=== PATIENT | male | born 1950 | race Caucasian/White ===

== ENCOUNTER → 2019-08-25 10:25 | Outpatient (CLI) | payer MEDICARE, OTHER | END | disposition home or self-care (01) | LOC: D.HCCECHO 10:25 | PROVIDERS: ATTEND Internal Medicine Cardiovascular Disease | DX: I10 Essential (primary) hypertension (principal); I20.9 Angina pectoris, unspecified ==

== ENCOUNTER 2019-09-13 07:11 | Outpatient (CLI) | payer MEDICARE, OTHER ==
[~2019-09-13] VITALS: Ht 180.3 cm; Wt 79.5 kg
--- NOTE | ~2019-09-13 | HEMODYNAMI ---
PATIENT:MARK SAENZ MEDICAL RECORD: [id number] : 50 LOCATION:[facility] ADMISSION DATE: 09/13/19 Generatedon:09/13/201910:08 Patient name: MARK SAENZ Patient #: [id number] SSN: : Date of study: 09/13/2019 Page: Of Hemodynamic Procedure Report Patient Data Patient Demographics Procedure consent was obtained First Name: MARK Gender: Male Last Name: LETTY : 1950 Patient #: [id number] Age: 68 year(s) Race: Unknown Additional ID: [id number] Contact details [address]: [address] [place] [address] State: [place] City: [place] Zip code: [address] Past Medical History Allergies: No known allergies Admission Admission Data Admission Date: 09/13/2019 Admission Time: 7:11 Arrival Date: 09/13/2019 Arrival Time: 0:00 Admit Source: Other Insurance Payor: Medicare [facility] #: [id number] Height (in.): 71 BSA: 1.99 (m2) Height (cm.): 180.34 BMI: 24.46 (kg/m2) Weight (lbs.): 175.36 Weight (kg.): 79.54 Lab Results Lab Result Date: 09/13/2019 Lab Result Time: 0:00 Biochemistry Name Units Result Min Max BUN mg/dl 26 --(----)-* 7 18 Creatinine mg/dl 0.9 --(-*--)-- 0.6 1.3 eGFR ml/min 88.26739 -*(----)-- 90 120 NONAFRICAN CBC Name Units Result Min Max Hematocrit % 42.7 --(*---)-- 42 54 Hemoglobin g/dl 42.7 --(----)-* 13.5 17.5 Procedure Procedure Types Cath Procedure Diagnostic Procedure [facility] w/Coronaries FFR/IVUS Intra-Coronary IVUS Initial Sedation Charges Moderate Sedation up to 30 minutes PCI Procedure Hemochron ACT Test Procedure Description Procedure Date Procedure Date: 09/13/2019 Procedure Start Time: 9:33 Procedure End Time: 10:08 Procedure Staff Name Function Dougals Fang MD Performing Physician Marta Florez RT Monitor Zonia Clemente RT Monitor Yoselin Sosa RN Nurse Ashly Walton RT Scrub Indication Chest pain Pulmonary hypertension Procedure Data Cath Procedure Fluoroscopy Diagnostic fluoroscopy Total fluoroscopy Time: 8.6 time: 8.6 min min Diagnostic fluoroscopy Total fluoroscopy dose: 801 dose: 801 mGy mGy Contrast Material Contrast Material Type Amount (ml) Isovue 370 111 Entry Location Entry Primary Successful Side Size Upsize Upsize Entry Closure Mitchell ccessful Closure Location (Fr) 1 (Fr) 2 (Fr) Remarks Device Remarks Radial Right 6 Fr 6 Fr Mechanical artery Short Short Compression Estimated blood loss: 10 ml Diagnostic catheters Device Type Used For End Catheter Placement DIAGNOSTIC Favian 110cm Procedure 5Fr catheter ([id number]) DIAGNOSTIC AR MOD 5Fr Procedure Catheter ([id number]) DIAGNOSTIC [place] 110cm 5 Procedure Fr catheter (462615) Procedure Complications No complications Procedure Medications Medication Administration Route Dosage Oxygen etCO2 Nasal cannula 2 l/min Lidocaine 2% added to field 20 Heparin Flush Bag added to field 2 bags (1000units/500ml NS) 0.9% NaCl I.V. 100 ml/hr Radial Cocktail added to field 1 syringe (Verapamil 2mg/Nitro 400mcg/Heparin 1500units) Versed I.V. 2 mg Fentanyl I.V. 100 mcg Versed I.V. 2 mg Fentanyl I.V. 100 mcg Versed I.V. 2 mg Heparin Bolus I.V. 6000 units Versed I.V. 2 mg Hemodynamics Rest BSA: 1.99 (m2) HGB: 42.7 (g/dl) O2 Consumption: Estimated: 226.42 (ml/min) O2 Co nsumption indexed: Estimated:113.78 (ml/min/m) Heart Rate: 64 (bpm) Pressure Samples Time Site Value (mmHg) Purpose Heart Use Rate(bpm) 9:35 LV 140/3,6 Snapshot 89 9:35 LV 165/27,12 Snapshot 134 Gradients Valve Time Site Site Mean SEP/DFP Peak To Heart Use 1 2 (mmHg) (sec/min) Peak Rate (mmHg) (bpm) Aortic 9:35 LV AO 112 Snapshots Pre Cath Intra NCS Post Cath Vital Signs Time Heart Resp SPO2 etCO2 NIBP (mmHg) Rhythm Pain Sedation Rate (ipm) (%) (mmHg) Status Level (bpm) 9:14:59 65 27 100 28.6 145/98(130) NSR 0 (11) 10(A) , No pain 9:19:15 78 21 98 30.8 145/82(118) NSR 0 (11) 10(A) , No pain 9:23:29 62 14 98 21.8 133/84(121) NSR 0 (11) 10(A) , No pain 9:27:39 71 37 95 23.3 149/84(98) NSR 0 (11) 10(A) , No pain 9:31:53 81 30 94 30.1 124/84(113) NSR 0 (11) 10(A) , No pain 9:36:00 89 20 97 33.1 121/61(74) NSR 0 (11) 10(A) , No pain 9:40:11 100 16 95 35.4 114/70(103) NSR 0 (11) 10(A) , No pain 9:44:14 97 13 97 36.9 130/80(113) NSR 0 (11) 10(A) , No pain 9:48:20 98 10 99 24.8 137/85(96) NSR 0 (11) 10(A) , No pain 9:52:30 90 18 99 38.4 125/73(112) NSR 0 (11) 10(A) , No pain 9:56:40 92 14 99 36.2 130/79(103) NSR 0 (11) 10(A) , No pain 10:00:50 88 18 99 34.6 133/80(95) NSR 0 (11) 10(A) , No pain 10:05:02 80 16 100 34.6 132/80(97) NSR 0 (11) 10(A) , No pain Medications Time Medication Route Dose Verified Delivered Reason Note s Effectiveness by by 9:19:32 Oxygen etCO2 2 l/min Douglas Buffie used for Nasal Leoncio Sosa plant assigner cannula 9:19:38 Lidocaine 2% added 20ml Douglas Douglas for local to vial Leoncio Fang MD anesthetic field 9:19:45 Heparin Flush added 2 bags Douglas Douglas used for Bag to Leoncio Fang MD procedure (1000units/500ml field NS) 9:19:54 0.9% NaCl I.V. 100 Douglas Buffie Per physician ml/hr Leoncio Sosa RN 9:29:54 Versed I.V. 2 mg Douglas Buffie for sedation Leoncio Sosa RN 9:29:59 Fentanyl I.V. 100 mcg Douglas Buffie for sedation Leoncio Sosa RN 9:34:18 Radial Cocktail added 1 Douglas Douglas for (Verapamil to syringe Leoncio Fang MD vasodilation 2mg/Nitro field 400mcg/Heparin 1500units) 9:34:25 Versed I.V. 2 mg Douglas Buffie for sedation Leoncio Sosa RN 9:34:29 Fentanyl I.V. 100 mcg Douglas Buffie for sedation Leoncio Sosa RN 9:40:24 Versed I.V. 2 mg Douglas Buffie for sedation Leoncio Sosa RN 9:49:20 Heparin Bolus I.V. 6000 Douglas Buffie for veri fied units Leoncio Sosa RN anticoagulation with dr fang 9:51:52 Versed I.V. 2 mg Douglas Buffie for sedation Leoncio Sosa RN Procedure Log Time Note 8:53:03 Diagnostic Cath Status : Elective 8:53:28 Indication : Chest pain 8:53:32 Indication : Pulmonary hypertension 8:53:37 Ashly Walton RT(R) (CV) sent for patient. Start room use. 8:53:40 Procedure Status Elective Heart Cath (OP). 8:53:46 ACC Patient presents with Stable Angina CCS Anginal Class 2--Slight limitation of ordinary activity. 8:53:49 Time tracking: Regular hours (M-F 7:00 - 5:00) 8:53:53 Plan of Care:Hemodynamics will remain stable., Cardiac rhythm will remain stable., Comfort level will be maintained., Respiratory function will remain adequate., Patient/ family verbilizes understanding of procedure., Procedure tolerated without complication., Recovers from procedure without complications.. 9:00:22 Patient received from Pre/Post Procedure Room to [facility] 1 Alert and oriented. Tansferred to table in Supine position. 9:00:25 Signed procedure consent form obtained from patient. 9:00:25 Warm blankets applied, and ofelia hugger turned on for patient comfort. 9:00:26 Correct patient and procedure confirmed by team. 9:00:27 ECG and BP/O2 sat monitors applied to patient. 9:00:42 Pre-procedure instructions explained to patient. 9:00:42 Pre-op teaching completed and patient verbalized understanding. 9:00:44 Family in waiting room. 9:00:46 Patient NPO since Midnight. 9:00:51 Patient allergic to No known allergies 9:00:54 Is the patient allergic to Iodine/contrast media? No. 9::56 Was the patient premedicated? Yes 9:01:19 unable to document scai risk assessment due to website down. 9:: Lab Result : BUN 26 mg/dl 9:: Lab Result : Creatinine 0.9 mg/dl 9:: Lab Result : eGFR NONAFRICAN 88.76154 ml/min 9::56 Lab Result : Hemoglobin 42.7 g/dl 9::56 Lab Result : Hematocrit 42.7 % 9:02:00 Lab results completed and on chart. 9:02:04 Stress Test: yes; abnormal inferior 9:02:05 Alarms reviewed by R. N. 9:02:06 Sharps counted by scrub and verified by R.N. 9:13:09 Is patient on blood thinner?No 9:13:11 Patient diabetic? No. 9:13:13 If diabetic: On Metformin? N/A 9:13:15 ----Pre-sedation anethsthesia assessment.---- 9:13:18 Previous problem with sedation/anesthesia? No ? 9:13:22 Snore? No 9:13:23 Sleep apnea? No 9:13:25 Deviated septum? No 9:13:26 Opens mouth fully? Yes 9:13:27 Sticks out tongue? Yes 9:13:29 Airway obstruction? No ? 9:13:31 Dentures? No ? 9:13:35 Pre procedure: right dorsailis pedis pulse 2+ Normal; easily identifiable; not easily obliterated 9:13:37 Modified Rodrick's test Ulnar < 7 seconds 9:13:40 Patient pain scale 0/10 ?. 9:13:48 IV patent on arrival in left hand with 0.9% NaCl at [facility]. 9:13:54 Vital chart was started 9:13:54 Full Disclosure recording started 9:14:03 Right Radial & Right Groin area was prepped with chlora-prep and draped in sterile fashion 9:14:07 Use device set Radial Dx or PCI 9:14:08 ACIST Syringe (72957) opened to sterile field. 9:14:09 Medline Cath Pack ([id number]) opened to sterile field. 9:14:09 Bag Decanter (2002S) opened to sterile field. 9:14:10 ACIST Hand Control (97344) opened to sterile field. 9:14:11 ACIST Manifold (23674) opened to sterile field. 9:14:12 MBrace Wrist Support (084740707) opened to sterile field. 9:14:12 NEEDLE Cook 21G 4cm Radial (B12236) opened to sterile field. 9:14:14 EMERALD Guide Wire (502-455) opened to sterile field. 9:14:14 SHEATH 6FR RAIN (8081136) opened to sterile field. 9:15:55 Insurance Payor : Medicare 9:15:57 Admit Source: Other 9:16:00 Arrival Date: 09/13/2019 12:00:00 AM 9:16:19 Patient Height : 71 inches 9:16:24 Patient Weight : 175.36 lbs 9:19:32 Oxygen 2 l/min etCO2 Nasal cannula was administered by Yoselin Sosa RN; used for procedure; Verbal order read back and verified. 9:19:38 Lidocaine 2% 20ml vial added to field was administered by Douglas Fang MD; for local anesthetic; Verbal order read back and verified. 9:19:45 Heparin Flush Bag (1000units/500ml NS) 2 bags added to field was administered by Douglas Fang MD; used for procedure; Verbal order read back and verified. 9:19:54 0.9% NaCl 100 ml/hr I.V. was administered by Yoselin Sosa RN; Per physician; Verbal order read back and verified. 9:28:31 Baseline sample Acquired. 9:28:34 Rhythm: sinus rhythm :57 --------ALL STOP TIME OUT------ : Final Timeout: patient, procedure, and site verified with staff and physician. All members of the team are in agreement. 9:28:59 Right Radial & Right Groin site verified by team. 9:29:11 Fire Safety Assessment: A--An alcohol-based skin anteseptic being used preoperatively., C--Open oxygen or nitrous oxide is being used., D--An ESU, laser, or fiber-optic light is being used. 9:29:39 Physical assessment completed. ASA score P 2 - A patient with mild systemic disease as per Douglas Fang MD. 9:29:43 2) 60-89 Mildly reduced kidney function, and other findings (as for stage 1) point to kidney disease. 9:29:46 Maximum allowable contrast dose (3.7 X eGFR X 0.75)247 ml. 9:29:51 Sedation plan: IV Moderate Sedation Medication:Versed, Fentanyl 9:29:54 Versed 2 mg I.V. was administered by Yoselin Sosa RN; for sedation; Verbal order read back and verified. 9::59 Fentanyl 100 mcg I.V. was administered by Yoselin Sosa RN; for sedation; Verbal order read back and verified. 9:32:29 Procedure started. 9:33:03 Local anesthetic to right radial artery with Lidocaine 2% by Douglas Fang MD.INITIAL ACCESS ONLY 9:33:43 A 6 Fr Short sheath was inserted into the Right Radial artery 9:34:16 A DIAGNOSTIC Favian 110cm 5Fr catheter (072540) was advanced over the wire and used for Procedure. 9:34:18 Radial Cocktail (Verapamil 2mg/Nitro 400mcg/Heparin 1500units) 1 syringe added to field was administered by Douglas Fang MD; for vasodilation; Verbal order read back and verified. 9:34:25 Versed 2 mg I.V. was administered by Yoselin Sosa RN; for sedation; Verbal order read back and verified. 9:34:29 Fentanyl 100 mcg I.V. was administered by Yoselin Sosa RN; for sedation; Verbal order read back and verified. 9:34:29 Injector settings: Ml/sec: 5, Volume: 15, 9:35:28 LV hemodynamics recorded. 9:35:31 LV gram done using MOBLEY 9:35:38 EF : 60 % 9:36:32 LCA angiography performed. 9:38:53 Catheter exchanged over wire. 9:39:31 A DIAGNOSTIC AR MOD 5Fr Catheter ([id number]) was advanced over the wire and used for Procedure. 9:40:24 Versed 2 mg I.V. was administered by Yoselin Sosa RN; for sedation; Verbal order read back and verified. 9:42:20 unable to cannulate w/ ar mod. 9:42:28 Catheter exchanged over wire. 9:42:39 A DIAGNOSTIC Verona 110cm 5 Fr catheter (594087) was advanced over the wire and used for Procedure. 9:44:29 RCA angiography performed. 9:46:24 SHEATH 6FR Dana (KIS870) opened to sterile field. 9:46:29 Catheter exchanged over wire. 9:46:30 Proceeding to intervention. 9:46:38 Sheath upsized to a 6 Fr Short. 9:46:47 INFLATOR Merit BasixCompak (SU0337) opened to sterile field. 9:46:48 TUBING High Pressure Extension Tubing (Leoncio) (BT9225A) opened to sterile field. 9:48:07 GUIDE 6FR XBLAD 3.5 catheter ([id number]) opened to sterile field. 9:49:20 Heparin Bolus 6000 units I.V. was administered by Yoselin Sosa RN; for anticoagulation; verified with dr fang Verbal order read back and verified. 9:50:12 [place] Eagley[place] IVUS Catheter (63608R) opened to sterile field. 9:50:32 6 Fr XBLAD 3.5 guide catheter was inserted over the wire 9:51:52 Versed 2 mg I.V. was administered by Yoselin Sosa RN; for sedation; Verbal order read back and verified. 9:54:21 BMW 190cm [place] 2 J wire (7167524G) opened to sterile field. 9:54:32 IVUS catheter advanced over wire. 9:59:32 IVUS pass to LAD lesion performed. 9:59:37 IVUS measurement 76.3 %. 9:59:55 Wire removed. 10:01:57 Guide catheter removed. 10:02:05 ZEPHYR REGULAR TR BAND (460231) opened to sterile field. 10:02:33 Sheath removed intact; hemostasis achieved with Mechanical Compression to the Right Radial artery. 10:02:39 Procedure ended.(Physican Out) 10:02:51 Fluoroscopy time 08.60 minutes. 10:02:54 Fluoroscopy dose: 801 mGy 10:02:54 Flurop Dose total: 801 10:03:00 Dose Area Product 61140 mGy/cm. 10:03:10 Contrast amount:Isovue 370 111ml. 10:03:12 Maximum allowable dose exceeded? No. 10:03:19 Sharps counted by scrub and verified by R.N. 10:03:30 Clayton band inflated with 10cc of air. 10:03:33 Post Procedure Pulses reassessed and unchanged 10:03:37 Post procedure: right dorsailis pedis pulse 2+ Normal; easily identifiable; not easily obliterated. 10:03:43 Post-procedure physical assessment completed. ASA score P 2 - A patient with mild systemic disease as per Douglas Fang MD. 10:03:52 Post procedure rhythm: unchanged. 10:03:55 Estimated blood loss: 10 ml 10:03:56 Post procedure instruction explained to patient.Patient verbalizes understanding. 10:03:57 Patient needs reinforcement of post procedure teaching. 10:05:10 Procedure type changed to Cath procedure, Diagnostic procedure, LHC, [facility] w/Coronaries, FFR/IVUS, Intra-Coronary IVUS Initial, Sedation Charges, Moderate Sedation up to 30 minutes, PCI procedure, Hemochron ACT Test 10:07:32 Procedure and supply charges have been captured, reviewed, submitted and are correct. 10:07:36 Procedure Complication : No complications 10:07:38 Vital chart was stopped 10:07:46 [facility] Findings: MVD- PCI performed (see procedure note) 10:07:48 Operative report dictated upon procedure completion. 10:07:49 See physician's report for complete and final results. 10:07:50 Report given to Pre/Post Procedure Room. 10:07:54 ACT drawn and resulted at 319 seconds. (normal therapeutic range 180-240 seconds). 10:07:55 Patient transfered to Pre/Post Procedure Room with Stretcher. 10:07:59 Procedure ended. 10:07:59 Full Disclosure recording stopped 10:08:24 End room use (Document Last) 10:08:40 End room use (Document Last) Device Usage Item Name Manufacture Quantity Catalog Hospital Part Current Minima l Lot# / Number Charge Number Stock Stock Serial# Code [facility] 1 26970 922550 015314 [id number] 20 Syringe Medical (49169) Systems Inc Medline Medline 1 [id number] 099113 65889 856039 5 Cath Pack ([id number]) Bag Microtek 1 514566 22504 930641 5 Decanter Medical Inc. () ACIST Hand Acist 1 82570 435407 844099 026884 5 Control Medical (43159) Systems Inc ACIST Acist 1 78838 992801 025347 806529 5 Manifold Medical (79568) Systems Inc MBrace Advanced 1 140-0250-00 891382 01540 972993 5 Wrist Vascular Support Dynamics (700676426) NEEDLE Cook Cook Medical 1 Z32512 320377 993230 254860 5 21G 4cm Radial (X55238) EMERALD Cardinal 1 502-455 846127 019578 375877 5 Guide Wire Health (502-455) SHEATH 6FR Cardinal 1 4359141 199469 2687949 652047 5 [facility] (9669507) DIAGNOSTIC Terumo 1 40-5023 860688 049677 001506 5 Favian 110cm 5Fr catheter (278976) DIAGNOSTIC Cardinal 1 [id number] 251620 605399 385480 15 AR MOD 5Fr Health Catheter (021414S) DIAGNOSTIC Terumo 1 40-5013 128874 115310 903920 5 Verona 110cm 5 Fr catheter (861619) SHEATH 6FR Terumo 1 WMR221 740828 276552 079923 40 Dana (PAS455) INFLATOR Merit 1 DU3499 348934 836678 376598 15 Merit Medical BasixCompak (DO9834) TUBING High Merit 1 [id number] 413376 84707 363980 10 Pressure Medical Extension Tubing (Fang) (IZ5679N) GUIDE 6FR Cardinal 1 11225405 681101 936119 358726 10 XBLAD 3.5 Health catheter (88409926) [place] 1 15163R 963154 151008 606556 8 [place] Eagleye IVUS Catheter (95287B) BMW 190cm Ruvalcaba 1 [id number] 554079 68153 612529 5 [place] 2 Vascular J wire (1400380S) ZEPHYR Cardinal 1 159852 654263 8387362 726349 5 REGULAR TR Health BAND (848032) Signature Audit [place] Stage Time Signature Unsigned Intra-Procedure 09/13/2019 Marta Flroez 10:08:24 AM RT(R) Intra-Procedure 09/13/2019 Yoselin Sosa RN 10:08:40 AM Intra-Procedure 09/13/2019 Douglas Fang MD 10:08:[address] [facility] [address] [place] [id number]
[2019-09-13 07:42] VITALS: BP 147/77; Ht 180.3 cm; Wt 79.5 kg
[2019-09-13] MEDS ORDERED: ATIVAN0.5 MG PO (07:45)
[2019-09-13] MEDS ORDERED: AMBIEN10 MG PO (07:45)
[2019-09-13] MEDS ORDERED: BAYER CHEWABLE81 MG PO (07:51)
[2019-09-13] MEDS ORDERED: AVAPRO300 MG PO (07:51)
[2019-09-13 07:58] LABS: BASOPHILS 0.2 % (0-2); EOSINOPHILS 3.1 % (0-7); HEMATOCRIT 42.7 % (42.0-54.0); HEMOGLOBIN 14.2 g/dL (13.5-17.5); IMMATURE GRANULOCYTES 0.8 % (0-5); LYMPHOCYTES 26.9 % (15-50); MCH 32.8 pg (26.0-34.0); MCHC 33.3 g/dL (31.0-37.0); MCV 98.6 fL (80.0-100.0); MEAN PLATELET VOLUME 9.4 fL (7.4-10.4); MONOCYTES 10.4 % (2-11); NEUTROPHILS 58.6 % (40-80); PLATELET COUNT 248 10x3/uL (130-400); RBC 4.33 10x6/uL (4.20-6.10); RDW 12.9 % (11.5-14.5); WBC 6.1 10x3/uL (4.8-10.8)
[2019-09-13 08:09] LABS: ALT (SGPT) 32 U/L (10-68); CALC OSMOLALITY 286 mosm/kg (275-300); CALCIUM 8.5 mg/dL (8.5-10.1); CARBON DIOXIDE 25.9 mmol/L (21.0-32.0); CHLORIDE - SERUM 106 mmol/L (98-107); CHOLESTEROL, TOTAL 182 mg/dL (0-200); CREATININE - SERUM 0.9 mg/dL (0.6-1.3); GLUCOSE 108 mg/dL (74-106); HDL CHOLESTEROL 46 mg/dL (32-96); LDL CHOLESTEROL 101 mg/dL (0-100); LDL-HDL RATIO 2.2 ratio (1.5-3.5); POTASSIUM - SERUM 4.6 mmol/L (3.5-5.1); SODIUM 141 mmol/L (136-145); TRIGLYCERIDE 177 mg/dL (30-200); UREA NITROGEN 26 mg/dL (7-18); eGFR NON AFRICAN AMERICAN 89 mL/min (90-120)
--- NOTE | 2019-09-13 10:20 | NUR ---
PT RECEIVED VIA STRETCHER FROM BULK MAIL CLERK FOR RECOVERY. PT AWAKE BUT DROWSY, DENIES PAIN OR DISCOMFORT. IV PATENT INFUSING VIA L HAND PER ORDERS. PT PLACED ON CARDIAC MONITORS AND O2 VIA NC AT 2L. HR NSR RATE 80, BP 135/75, RR 19, SAT 100. R WRIST HAS ZYHPER BAND AND IMMOBILIZER IN PLACE, DRESSING CDI NO BLEEDING OR S/S HEMATOMA NOTED. ARM PINK AND WARM, CAP REFILL BRISK. PT INSTRUCTED NOT TO USE ARM, HE VERBALIZED UNDERSTANDING. SIPS OF WATER GIVEN. CALL LIGHT IN REACH, AT BS.
--- NOTE | 2019-09-13 10:42 | NUR ---
DR. WARE AT , DISCUSSING PROCEDURE RESULTS AND PLAN OF CARE W PT AND . ZBAND AND IMMOBILIZER IN PLACE. DRESSING CDI NO S/S HEMATOMA NOTED. VSS. CALL LIGHT IN REACH
--- NOTE | 2019-09-13 11:25 | NUR ---
PT RESTING W/O COMPLAINTS. VSS. SANDWICH TRAY SERVED. R WRIST W/O BLEEDING OR S/S HEMATOMA NOTED. ZBAND AND IMMOBILIZER IN PLACE. CALL LIGHT IN REACH, REMAINS AT BS. DR LOU'S NURSE NOTIFIED TO SEE PT PER DR WARE
--- NOTE | 2019-09-13 12:00 | NUR ---
PT DOING WELL, RESTING W/O COMPLAINTS. ZBAND AND IMMOBILIZER IN PLACE, DRESSING REMAINS CDI NO BLEEDING OR S/S HEMATOMA NOTED. VSS. CALL LIGHT IN REACH.
--- NOTE | 2019-09-13 12:35 | NUR ---
5 CC AIR REMOVED FROM Z BAND, NO BLEEDING OR S/S HEMATOMA NOTED. CAP REFILL BRISK. DR. LOU'S NURSE AT DISCUSSING PLAN OF CARE. CALL LIGHT IN REACH. PT VOIDED LARGE AMOUNT W NO DIFFICULITIES.
--- NOTE | 2019-09-13 13:00 | NUR ---
3 ADD'L CC AIR REMOVED FROM Z BAND, NO BLEEDING OR S/S HEMATOMA NOTED. CAP REFILL BRISK ARM PINK AND WARM. HR 75, BP 137/71, RR 14. SAT 95 ON ROOM AIR.
--- NOTE | 2019-09-13 13:20 | NUR ---
DISCHARGE INSTRUCTIONS REVIEWED W PT AND , BOTH VERBALIZED UNDERSTANDING. IV REMOVED W CATH INTACT, MONITORS REMOVED AND PT UP TO DRESS FOR DISCHARGE. 1325 ZBAND AND IMMOBILIZER REMOVED, 2X2 AND TEGADARM DRESSING APPLIED. NO S/S HEMATOMA NOTED.
[2019-09-13] MEDS ORDERED: LIPITOR10 MG PO (13:24)
--- NOTE | 2019-09-13 13:35 | NUR ---
PT DISCHARGED VIA WC TO WAITING IN PRIVATE VEHICLE. PT HAD ALL BELONGINGS AND DISCHARGE PAPERWORK.
== END 2019-09-13 13:35 | disposition home or self-care (01) ==
LOC: D.CATH 07:11
PROVIDERS: ATTEND Internal Medicine Cardiovascular Disease
DX: I20.9 Angina pectoris, unspecified (principal); R94.39 Abnormal result of other cardiovascular function study; I10 Essential (primary) hypertension; R07.9 Chest pain, unspecified

== ENCOUNTER → 2019-11-01 10:38 | Outpatient (CLI) | payer MEDICARE, OTHER ==
[2019-10-07 13:18] VITALS: BMI 26.9
[~2019-11-01 10:38] MED LIST: AMBIEN10 MG PO; AMIODARONE HCL200 MG PO; ASPIRIN EC81 M1 PO; ASPIRIN325 MG PO; ATIVAN0.5 MG PO; AVAPRO300 MG PO; BAYER CHEWABLE81 MG PO; FISH OIL 1,0001 CA1 PO; K-DUR20 MEQ PO; LASIX40 MG PO; LIPITOR10 MG PO; LOPRESSOR25 MG PO; PERCOCET 5-3251 TAB PO; VITAMIN B-121000 MCG PO; VITAMIN D10000 UNI1 PO
[2019-11-01 11:25] LABS: ANION GAP 10.7 mmol/L (8-16); CALCIUM 8.6 mg/dL (8.5-10.1); CARBON DIOXIDE 29.2 mmol/L (21.0-32.0); CREATININE - SERUM 1.2 mg/dL (0.6-1.3); POTASSIUM - SERUM 4.9 mmol/L (3.5-5.1)
[2019-11-01 11:31] LABS: BASOPHILS 0.3 % (0-2); EOSINOPHILS 4.3 % (0-7); HEMATOCRIT 41.8 % (42.0-54.0); HEMOGLOBIN 13.5 g/dL (13.5-17.5); IMMATURE GRANULOCYTES 0.5 % (0-5); LYMPHOCYTES 22.6 % (15-50); MCH 32.2 pg (26.0-34.0); MCHC 32.3 g/dL (31.0-37.0); MCV 99.8 fL (80.0-100.0); MEAN PLATELET VOLUME 9.2 fL (7.4-10.4); MONOCYTES 8.5 % (2-11); NEUTROPHILS 63.8 % (40-80); RBC 4.19 10x6/uL (4.20-6.10); RDW 13.2 % (11.5-14.5); WBC 6.2 10x3/uL (4.8-10.8)
[2019-11-01 11:33] LABS: PLATELET COUNT 311 10x3/uL (130-400)
== END | disposition home or self-care (01) ==
LOC: D.RAD 10:38
PROVIDERS: ATTEND Thoracic Surgery (Cardiothoracic Vascular Surgery)
DX: I25.10 Atherosclerotic heart disease of native coronary artery without angina pectoris (principal)